=== PATIENT | male | born 1990 | race African-American/Black ===

== ENCOUNTER 2016-11-16 07:53 | Emergency (ER) | payer SELFPAY ==
[2016-11-16 08:05] VITALS: BP 121/58
--- NOTE | 2016-11-16 08:53 | ER Document Report ---
ED Oral Problem - General Chief Complaint: Toothache Stated Complaint: TOOTH PAIN Mode of Arrival: Ambulatory Information source: Patient Notes: 26-year-old male presents to the emergency department complaining of left upper dental pain over the last 2 days. States has decayed tooth that has intermittently caused him pain in the past but has worsened over the last 2 days. States has had previous dental abscess and does not want to get to that point again. Denies fever, drainage, difficulty breathing or swallowing. TRAVEL OUTSIDE OF THE [place] IN LAST 30 DAYS: No - HPI Patient complains to provider of: Toothache Onset: Gradual Quality of pain: Achy Severity: Moderate Pain Level: 4 Associated symptoms: Dental decay, Toothache. denies: Difficulty speaking, Drooling, Fever, Jaw pain, Unable to swallow Similar symptoms previously: Yes Recently seen / treated by doctor/dentist: No - Related Data Allergies/Adverse Reactions: Penicillins Allergy (Verified 11/16/16 08:06) Past Medical History - General Information source: Patient - Social History Smoking Status: Current Some Day Smoker Frequency of alcohol use: Occasional Drug Abuse: None Lives with: Family Family History: Reviewed & Not Pertinent - Medical History Medical History: Negative Surgical Hx: Negative - Immunizations Hx Diphtheria, Pertussis, Tetanus Vaccination: Yes Review of Systems - Review of Systems Constitutional: No symptoms reported EENT: See HPI Cardiovascular: No symptoms reported Respiratory: No symptoms reported Gastrointestinal: No symptoms reported Genitourinary: No symptoms reported Male Genitourinary: No symptoms reported Musculoskeletal: No symptoms reported Skin: No symptoms reported Hematologic/Lymphatic: No symptoms reported Neurological/Psychological: No symptoms reported -: Yes All other systems reviewed and negative Physical Exam - Vital signs Vitals: Temp Pulse Resp BP Pulse Ox 97.8 F 56 L 16 121/58 L 100 11/16/16 08:04 11/16/16 08:04 11/16/16 08:04 11/16/16 08:04 11/16/16 08:04 Interpretation: Normal - General General appearance: Appears well, Alert - HEENT Head: Normocephalic, Atraumatic Eyes: Normal Conjunctiva: Normal Eyelashes: Normal Pupils: PERRL Ears: Normal External canal: Normal Tympanic membrane: Normal Sinus: Normal Nasal: Normal Mouth/Lips: Caries. No: Angioedema, Dental fracture, Laceration Mucous membranes: Normal, Moist Teeth diagram: 1 - Moderate dental decay, localized tenderness with palpation. No swelling, drainage, or fluctuance. Pharynx: Normal. No: Blood in hypopharynx, Erythema, Exudate, Peritonsillar abscess, Post nasal drainage, Retropharyngeal abscess, Tonsillar hypertrophy, Uvular edema, Potential airway comprom., Other Neck: Normal. No: Anterior cervical chain, Posterior cervical chain, Lymphadenopathy, Meningismus, Subcutaneous emphysema - Respiratory Respiratory status: No respiratory distress Chest status: Nontender Breath sounds: Normal. No: Rhonchi, Wheezing Chest palpation: Normal - Cardiovascular Rhythm: Regular Heart sounds: Normal auscultation Murmur: No Pulses: Normal: Radial Normal capillary refill: Yes - Back Back: Normal, Nontender - Extremities General upper extremity: Normal inspection, Normal color, Normal ROM General lower extremity: Normal inspection, Normal color, Normal ROM, Normal weight bearing - Neurological Neuro grossly intact: Yes Cognition: Normal Orientation: AAOx4 [place] Coma Scale Eye Opening: Spontaneous [place] Coma Scale Verbal: Oriented [place] Coma Scale Motor: Obeys Commands Agnes Coma Scale Total: 15 Speech: Normal Motor strength normal: LUE, RUE, LLE, RLE Sensory: Normal - Psychological Associated symptoms: Normal affect, Normal mood - Skin Skin Temperature: Warm Skin Moisture: Dry Skin Color: Normal Course - Re-evaluation Re-evalutation: 11/16/16 08:51 Patient hemodynamically stable, in no distress, afebrile. No trismus, abscess, suggestion of Angel's angina or significant deep space or soft tissue infection at this time. Home care, follow-up with dental provider, ED return precautions discussed with patient who verbalized understanding and agrees with plan. - Vital Signs Vital signs: Temp Pulse Resp BP Pulse Ox 97.8 F 56 L 16 121/58 L 100 11/16/16 08:04 11/16/16 08:04 11/16/16 08:04 11/16/16 08:04 11/16/16 08:04 Discharge - Discharge Clinical Impression: Pain, dental Condition: Stable Disposition: HOME, SELF-CARE Additional Instructions: TOOTHACHE: Your pain is due to dental decay. The tooth must be repaired in order for you to feel better. You will, therefore, be referred to a dentist. We do not have dentists on the staff at [facility]. Severe swelling or drainage around a tooth usually means a dental abscess. This also requires evaluation and treatment by the dentist, but antibiotics may be prescribed while awaiting dental treatment. You should be rechecked immediately if you develop major swelling of the face, increasing pain, a lump in the jaw or gums, headache, difficulty swallowing, or fever. Anti-Inflammatory Medication You have received a prescription for an antiinflammatory agent. This is an excellent, safe drug for pain control. In addition, it has potent antiinflammatory effects which are beneficial, especially in the treatment of injuries, arthritis, or tendonitis. It's best to take this medicine with food. Persons with ulcer disease or allergy to aspirin should notify their physician of this before taking this drug. Take the medication exactly as prescribed. Don't take additional doses unless instructed to do so by your doctor. If you develop wheezing, shortness of breath, hives, faintness, stomach pain, vomiting, or dark black stools, return for re-evaluation at once. CLINDAMYCIN: You have been given a prescription for the antibiotic clindamycin. It is often prescribed for infections in the mouth, such as dental infections or abscesses, and for skin infections due to MRSA. It's important that you take all the medication, unless instructed otherwise by your physician. Failure to complete the entire course can result in relapse of your condition. Common side effects of antibiotics include nausea, intestinal cramping, or diarrhea. Women may develop vaginal yeast infections, and babies can get yeast (thrush) in the mouth following the use of antibiotics. Contact your physician if you develop significant side effects from this medication. Allergy to this antibiotic can result in hives, wheezing, faintness, or itching. If symptoms of allergy occur, stop the medication and call the doctor. FOLLOW-UP CARE: Follow-up with your dental provider tomorrow as discussed. If you're unable to follow-up with your own dental provider you may contact any of the clinics listed below and schedule an appointment within the next week. If you experience worsening or a significant change in your symptoms, notify the physician immediately or return to the Emergency Department at any time for re-evaluation. [facility] [address] [place], [place] mornings, by appointment [facility] [address] [place] [address] [facility] [address] [facility] [address] [facility] [address] [email or web address] [address] [place] [address] Wednesday- 8:00am to 5:00 pm Will see patients from other [facility]. Charges based on income and family size and accepts Medicare, Medicaid, and Insurances Will pull molars [facility] [address] Hours of Operation 8:00 am - 4:30 pm weekdays The following dental offices accept Medicaid: [facility] Dr. Narayan Dr. Preston Dr. Devi Dr. Moore Prasanna Tompkins Lutsavage, and Ghanshyam oral surgery Dr. Guillen ([place]) Dr. Espinal ([place]) [facility] Drs. Clark and Sammy ([place]) Dr. Caban ([place]) [facility] Dr. Bray ([place]) Drs. Maki and Scholar ([place]) Medicaid Care Line Prescriptions: Clindamycin HCl 300 mg PO Q6H #20 capsule Naproxen [Naprosyn 375 Mg Tablet] 375 mg PO BIDP PRN #10 tablet PRN Reason:
== END 2016-11-16 09:03 | disposition home or self-care (01) ==
LOC: ER 07:53
DX: K08.9 Disorder of teeth and supporting structures, unspecified (principal); F17.200 Nicotine dependence, unspecified, uncomplicated; Z88.0 Allergy status to penicillin
CPT/HCPCS: 99282

== ENCOUNTER 2017-02-16 08:07 | Emergency (ER) | payer SELFPAY ==
--- NOTE | 2017-02-16 09:07 | ER Document Report ---
ED Oral Problem - General Chief Complaint: Toothache Stated Complaint: TOOTH PAIN Mode of Arrival: Ambulatory Information source: Patient TRAVEL OUTSIDE OF THE [place] IN LAST 30 DAYS: No - HPI Patient complains to provider of: Toothache Onset: Last week Onset: Gradual Quality of pain: Achy Severity: Moderate Associated symptoms: Dental decay, Toothache. denies: Chills, Cough, Decreased appetite, Difficulty speaking, Drainage, Drooling, Earache, Facial pain, Fever, Headache, Short of breath, Sweaty, Tongue swelling, Unable to swallow, White patches in mouth Worsened by: Cold Notes: Patient arrives with complaints of right upper dental pain for the last few days. No injury. No swelling. No difficulty breathing or swallowing. No nausea, vomiting, diarrhea. No chest pain or shortness of breath. He's had this in the past and has been seen for dental pain several times in the emergency department. He reports that he does have a dentist that he can follow -up with. He denies any other complaints at this time. - Related Data Allergies/Adverse Reactions: Penicillins Allergy (Verified 02/16/17 08:11) Past Medical History - Social History Smoking Status: Current Some Day Smoker Chew tobacco use (# tins/day): No Frequency of alcohol use: Occasional Drug Abuse: None Family History: Reviewed & Not Pertinent Patient has suicidal ideation: No Patient has homicidal ideation: No Renal/ Medical History: Denies: Hx Peritoneal Dialysis - Immunizations Hx Diphtheria, Pertussis, Tetanus Vaccination: Yes Review of Systems - Review of Systems -: Yes All other systems reviewed and negative Physical Exam - Vital signs Vitals: Temp Pulse Resp BP Pulse Ox 98.2 F 59 L 16 140/65 H 100 02/16/17 08:12 02/16/17 08:12 02/16/17 08:12 02/16/17 08:12 02/16/17 08:12 - General General appearance: Appears well, Alert - HEENT Eyes: Normal Conjunctiva: Normal Ears: Normal External canal: Normal Tympanic membrane: Normal Mouth/Lips: Normal, Other - Widespread dental decay. The patient has tenderness over his right upper second molar. This tooth is decayed. I do not appreciate any drainable abscess at this time. There is no trismus or drooling. Mucous membranes: Normal Pharynx: Normal Neck: Normal - Respiratory Respiratory status: No respiratory distress Breath sounds: Normal - Cardiovascular Rhythm: Regular Heart sounds: Normal auscultation Murmur: No - Extremities General upper extremity: Normal inspection, Nontender, Normal color, Normal ROM , Normal temperature General lower extremity: Normal inspection, Nontender, Normal color, Normal ROM , Normal temperature, Normal weight bearing. No: Quita's sign - Neurological Neuro grossly intact: Yes Cognition: Normal Orientation: AAOx4 [place] Coma Scale Eye Opening: Spontaneous [place] Coma Scale Verbal: Oriented [place] Coma Scale Motor: Obeys Commands Agnes Coma Scale Total: 15 Speech: Normal Motor strength normal: LUE, RUE, LLE, RLE Sensory: Normal - Psychological Associated symptoms: Normal affect, Normal mood - Skin Skin Temperature: Warm Skin Moisture: Dry Skin Color: Normal Course - Re-evaluation Re-evalutation: 02/16/17 09:05 The patient is nontoxic appearing with stable vitals. The patient has a dental carry to the right upper second molar. Did not appreciate any abscess at this time. No swelling. He is in no distress. There is no trismus or drooling. The patient is allergic to penicillin, therefore the patient will be discharged home with clindamycin as well as NSAIDs. He will be instructed to follow-up with his dentist at the next available appointment. Follow-up sooner for increased pain, fever, swelling, difficulty breathing or swallowing, persistent vomiting, or any further concerns. The patient is noted to have elevated blood pressure during today's emergency department visit. The patient was informed of this finding. The patient was instructed that this may be related to pre-hypertension and requires further evaluation with a primary care provider. The patient has no hypertensive symptoms at this time. The patient's emergency department workup and current diagnosis were explained to the patient and or family. Follow-up instructions were provided. Medications if prescribed were discussed. Instructions for when to return to the emergency department including specific worrisome symptoms were discussed with the patient and/or family. - Vital Signs Vital signs: Temp Pulse Resp BP Pulse Ox 98.2 F 59 L 16 140/65 H 100 02/16/17 08:12 02/16/17 08:12 02/16/17 08:12 02/16/17 08:12 02/16/17 08:12 Discharge - Discharge Clinical Impression: Dental cavities Condition: Stable Disposition: HOME, SELF-CARE Instructions: Toothache (OM) Additional Instructions: Take medications as prescribed. Drink plenty of fluids. Follow-up with your dentist at the next available appointment. Follow-up sooner for increased pain , fever, significant swelling, difficulty breathing, difficulty swallowing, persistent vomiting, or any further concerns. Your blood pressure was elevated during today's visit. Have this rechecked with your doctor. Prescriptions: Clindamycin HCl 300 mg PO QID #40 capsule Diclofenac Sodium [Voltaren] 75 mg PO BID #20 tablet.dr Forms: Elevated Blood Pressure
[2017-02-16 09:39] VITALS: BP 138/60
== END 2017-02-16 09:30 | disposition home or self-care (01) ==
LOC: ER 08:07
DX: K02.9 Dental caries, unspecified (principal); K08.89 Other specified disorders of teeth and supporting structures; R05 Cough; R63.0 Anorexia
CPT/HCPCS: 99282

== ENCOUNTER 2017-03-23 08:02 | Emergency (ER) | payer SELFPAY ==
[2017-03-23 08:12] VITALS: BP 126/83
[2017-03-23] MEDS ORDERED: LIDOCAINE 1% INJ-PF (10 MG/ML) 30 ML SDV INJ ONE (08:35)
--- NOTE | 2017-03-23 09:35 | ER Document Report ---
ED General - General Chief Complaint: Abscess Stated Complaint: ABSCESS Time Seen by Provider: 03/23/17 08:29 Mode of Arrival: Ambulatory Information source: Patient Notes: 26-year-old male presents with complaints of abscess under the right armpit 34 day duration. Patient denies any fevers or chills nausea vomiting or diarrhea TRAVEL OUTSIDE OF THE [place] IN LAST 30 DAYS: No - HPI Onset: Other Onset/Duration: Persistent Quality of pain: Achy Severity: Mild Pain Level: 1 Associated symptoms: Other Exacerbated by: Denies Relieved by: Denies Similar symptoms previously: Yes Recently seen / treated by doctor: No - Related Data Allergies/Adverse Reactions: Penicillins Allergy (Verified 02/16/17 08:11) Past Medical History - Social History Smoking Status: Never Smoker Cigarette use (# per day): No Chew tobacco use (# tins/day): No Smoking Education Provided: No Family History: Reviewed & Not Pertinent Patient has suicidal ideation: No Patient has homicidal ideation: No Renal/ Medical History: Denies: Hx Peritoneal Dialysis - Immunizations Hx Diphtheria, Pertussis, Tetanus Vaccination: Yes Review of Systems - Review of Systems Notes: REVIEW OF SYSTEMS: CONSTITUTIONAL : Denies fever, chills, or sweats. Denies recent illness. EENT: Denies eye, ear, throat, or mouth pain or symptoms. Denies nasal or sinus congestion or discharge. Denies throat, tongue, or mouth swelling or difficulty swallowing. CARDIOVASCULAR: Denies chest pain. Denies palpitations or racing or irregular heart beat. Denies ankle edema. RESPIRATORY: Denies cough, cold, or chest congestion. Denies shortness of breath, difficulty breathing, or wheezing. GASTROINTESTINAL: Denies abdominal pain or distention. Denies nausea, vomiting , or diarrhea. Denies blood in vomitus, stools, or per rectum. Denies black, tarry stools. Denies constipation. GENITOURINARY: Denies difficulty urinating, painful urination, burning, frequency, blood in urine, or discharge. MUSCULOSKELETAL: Denies back or neck pain or stiffness. Denies joint pain or swelling. SKIN: right axillay abscess HEMATOLOGIC : Denies easy bruising or bleeding. LYMPHATIC: Denies swollen, enlarged glands. NEUROLOGICAL: Denies confusion or altered mental status. Denies passing out or loss of consciousness. Denies dizziness or lightheadedness. Denies headache. Denies weakness or paralysis or loss of use of either side. Denies problems with gait or speech. Denies sensory loss, numbness, or tingling. Denies seizures. PSYCHIATRIC: Denies anxiety or stress. Denies depression, suicidal ideation, or homicidal ideation. ALL OTHER SYSTEMS REVIEWED AND NEGATIVE. Dictation was performed using [employer] voice recognition software PHYSICAL EXAMINATION: GENERAL: Well-appearing, well-nourished and in no acute distress. HEAD: Atraumatic, normocephalic. EYES: Pupils equal round and reactive to light, extraocular movements intact, sclera anicteric, conjunctiva are normal. ENT: Nares patent, oropharynx clear without exudates. Moist mucous membranes. NECK: Normal range of motion, supple without lymphadenopathy LUNGS: Breath sounds clear to auscultation bilaterally and equal. No wheezes rales or rhonchi. HEART: Regular rate and rhythm without murmurs ABDOMEN: Soft, nontender, nondistended abdomen. No guarding, no rebound. No masses appreciated. Musculoskeletal: Normal range of motion, no pitting or edema. No cyanosis. NEUROLOGICAL: Cranial nerves grossly intact. Normal speech, normal gait. Normal sensory, motor exams PSYCH: Normal mood, normal affect. SKIN:right axillary abscess 5x5 cm fluctuant Physical Exam - Vital signs Vitals: Temp Pulse Resp BP Pulse Ox 97.6 F 78 20 126/83 H 100 03/23/17 08:09 03/23/17 08:09 03/23/17 08:09 03/23/17 08:09 03/23/17 08:09 Course - Re-evaluation Re-evalutation: 03/23/17 10:03 Area was anesthetized incised large amount of pus was drained patient was started on antibiotics and given surgical follow-up Patient instructed on risks and benefits of medications prescribed. Denies any concerns regarding such. After performing a Medical Screening Examination, I estimate there is LOW risk for OPEN FRACTURE, COMPARTMENT SYNDROME, TENDON RUPTURE, ACUTE NEUROVASCULAR INJURY, or RETAINED FOREIGN BODY, thus I consider the discharge disposition reasonable. Also, there is no evidence or peritonitis, sepsis, or toxicity. I have reevaluated this patient multiple times and no significant life threatening changes are noted. The patient and I have discussed the diagnosis and risks, and we agree with discharging home with close follow-up with the understanding that symptoms and presentations can change. We also discussed returning to the Emergency Department immediately if new or worsening symptoms occur. We have discussed the symptoms which are most concerning (e.g., changing or worsening pain, fever, numbness, weakness, cool or painful digits) that necessitate immediate return. 03/23/17 10:03 - Vital Signs Vital signs: Temp Pulse Resp BP Pulse Ox 97.6 F 78 20 126/83 H 100 03/23/17 08:09 03/23/17 08:09 03/23/17 08:09 03/23/17 08:09 03/23/17 08:09 Procedures - Incision and Drainage Right Arm Time completed: 09:34 Type: Simple, Single Anesthetic type: 1% Lidocaine mL's of anesthetic: 10 Blade size: 11 I&D procedure: Sterile dressing applied Incision Method: Incision made by scalpel Amount/type of drainage: large thick pus Discharge - Discharge Clinical Impression: Axillary abscess Condition: Stable Disposition: HOME, SELF-CARE Instructions: Post Incision and Drainage Prescriptions: Sulfamethoxazole/Trimethoprim [Bactrim Ds Tablet] 2 each PO BID #40 tablet Referrals: RAJ ELAM MD [ACTIVE STAFF] - Follow up in 3-5 days
== END 2017-03-23 10:15 | disposition home or self-care (01) ==
LOC: ER 08:02
PROC: 0H9BXZZ Drainage of Right Upper Arm Skin, External Approach (ICD-10-PCS; principal; 2017-03-23)
DX: L02.411 Cutaneous abscess of right axilla (principal); Z88.0 Allergy status to penicillin
CPT/HCPCS: 99283

== ENCOUNTER 2018-05-31 11:55 | Emergency (ER) | payer SELFPAY ==
[2018-05-31 12:01] VITALS: BP 122/88
[2018-05-31] MEDS ORDERED: LIDOCAINE 1% INJ-PF (10 MG/ML) 30 ML SDV INJ ONE (13:52)
[2018-05-31] MEDS ORDERED: CEFTRIAXONE INJ 1000 MG VIAL IM ONE (13:52)
[2018-05-31] MEDS ORDERED: HYDROCODONE/ACETAMINOPHEN 5-325 MG (6 TAB/ER DISP) PO PRN (13:53)
--- NOTE | 2018-05-31 13:59 | ER Document Report ---
ED General - General Chief Complaint: Rectal Abscess Stated Complaint: POSSIBLE ABSCESS Mode of Arrival: Ambulatory Information source: Patient TRAVEL OUTSIDE OF THE [place] IN LAST 30 DAYS: No - HPI Notes: 27-year-old male presents to the ED with concerns of a possible rectal abscess that he noticed approximately 1 day ago. Last bowel movement was last night. Denies any trauma to the rectum. Has had a history of this in the past approximately 10 years ago, went away on its own. Unsure of a history of MRSA. Cannot take penicillins due to what he was told was a prophylactic reaction. Pain is 7 out of 10, throbbing and sharp. Has not tried any [id number] medications. Has not tried any heat or warm soaks. Denies fevers, chills, chest pain,palpitations, shortness of breath, dyspnea, nausea, vomiting, diarrhea, abdominal pain, hematuria,blurred vision, double vision, loss of vision, speech changes, LH, dizziness, syncope, headaches, wheezing, ST, URI, neck pain, weakness, bowel or bladder dysfunction, saddle anesthesia, numbness or tingling in bilateral upper or lower extremities equally, muscle paralysis, weakness in bilateral upper or lower extremities equally or rash. Denies IV drug use. - Related Data Allergies/Adverse Reactions: Penicillins Allergy (Verified 02/16/17 08:11) Past Medical History - General Information source: Patient - Social History Smoking Status: Current Every Day Smoker Chew tobacco use (# tins/day): No Frequency of alcohol use: None Family History: Reviewed & Not Pertinent Patient has suicidal ideation: No Patient has homicidal ideation: No Renal/ Medical History: Denies: Hx Peritoneal Dialysis - Immunizations Hx Diphtheria, Pertussis, Tetanus Vaccination: Yes Review of Systems - Review of Systems Constitutional: No symptoms reported EENT: No symptoms reported Cardiovascular: No symptoms reported Respiratory: No symptoms reported Gastrointestinal: No symptoms reported Genitourinary: No symptoms reported Male Genitourinary: No symptoms reported Musculoskeletal: No symptoms reported Skin: See HPI Hematologic/Lymphatic: No symptoms reported Neurological/Psychological: No symptoms reported Physical Exam - Vital signs Vitals: Temp Pulse Resp BP Pulse Ox 98.1 F 91 16 122/88 H 100 05/31/18 12:00 05/31/18 12:00 05/31/18 12:00 05/31/18 12:00 05/31/18 12:00 - Notes Notes: PHYSICAL EXAMINATION: GENERAL: Well-appearing, well-nourished and in no acute distress. HEAD: Atraumatic, normocephalic. EYES: Pupils equal round and reactive to light, extraocular movements intact, sclera anicteric, conjunctiva are normal. ENT: Nares patent, oropharynx clear without exudates. Moist mucous membranes. NECK: Normal range of motion, supple without lymphadenopathy LUNGS: Breath sounds clear to auscultation bilaterally and equal. No wheezes rales or rhonchi. HEART: Regular rate and rhythm without murmurs : See skin exam. Normal sphincter tone, no hemorrhoids or masses palpable ABDOMEN: Soft, nontender, nondistended abdomen. No guarding, no rebound. No masses appreciated. Musculoskeletal: Normal range of motion, no pitting or edema. No cyanosis. NEUROLOGICAL: Cranial nerves grossly intact. Normal speech, normal gait. Normal sensory, motor exams PSYCH: Normal mood, normal affect. SKIN: Warm, Dry, normal turgor, no rashes or lesions noted. Noted cellulitis around rectum at 6:00, with induration, erythema to touch, no fluctuance noted. No surrounding erythema Course - Re-evaluation Re-evalutation: Healthy 27-year-old male who is afebrile, vitals stable and in no distress presents to the ED for evaluation of what he suspects is a cellulitis of his rectum, has had this before. He said he cleared up on his own. Patient states his pain only worsens when he is trying to have a bowel movement. Is passing flatus. Has not tried any warm soaks any other modalities. Discussed with him following up with the colorectal surgeon at this does turn into an abscess or to return to the ED. we will give patient stool softeners, take antibiotics as directed, warm compress, she given 6 [place] 5 mg325's to go home, advised him not to drive, drink alcohol or operate machinery while taking medication as it can cause sedation and impair driving. Follow-up with primary care provider in 1-2 days. After performing a Medical Screening Examination, I estimate there is LOW risk for EXPANDING OR RUPTURED ABDOMINAL AORTIC ANEURYSM, CAUDA EQUINA SYNDROME, EPIDURAL MASS ABSCESS OR LESION(S), OSTEOMYELITIS,PERSONAL HISTORY OF CANCER, IMMUNOSUPPERSSSION, HISTORY OF IV DRUG USE, FRACTURE, CORD COMPERSSION, CANCER, RETROPERITONEAL BLEED, SPINAL EPIDURAL HEMATOMA, or HERNIATED DISK CAUSING SEVERE SPINAL STENOSIS, thus I consider the discharge disposition reasonable. I have reevaluated this patient multiple times and no significant life threatening changes are noted. The patient and I have discussed the diagnosis and risks, and we agree with discharging home and close follow-up. We also discussed returning to the Emergency Department immediately if new or worsening symptoms occur with the understanding that symptoms and presentations can change. We have discussed the symptoms which are most concerning (e.g., saddle anesthesia, urinary or bowel incontinence or retention, changing or worsening pain) that necessitate immediate return. - Vital Signs Vital signs: Temp Pulse Resp BP Pulse Ox 98.1 F 91 16 122/88 H 100 05/31/18 12:00 05/31/18 12:00 05/31/18 12:00 05/31/18 12:05/31/18 12:00 Discharge - Discharge Clinical Impression: Abscess, Cellulitis and abscess of buttock Condition: Stable Disposition: HOME, SELF-CARE Instructions: Abscess ([facility]), Cephalexin ([facility]), MRSA Cellulitis ([facility]), Oral Narcotic Medication ([facility]), Trimethoprim-Sulfa ([facility]) Additional Instructions: Follow up with surgeon or colorectal surgeon within 3-5 days. You need to take the antibiotics as prescribed. Warm soaks, sitz bath, advised to take stool softeners to help with passage of stool. You should also return if you develop fevers with temperature greater than 101, persistent vomiting, worsening pain, or have any other symptoms that are concerning to you. Prescriptions: Clindamycin HCl 300 mg PO Q6H #28 capsule Docusate Sodium [Colace] 100 mg PO BID #60 capsule Forms: Return to Work Referrals: AMBER CLEMENTS MD [[facility]] - Follow up in 3-5 days KENDRA DUNLAP MD [ACTIVE STAFF] - Follow up in 3-5 days BERNADINE GARCIA MD [ACTIVE STAFF] - Follow up as needed
== END 2018-05-31 14:12 | disposition home or self-care (01) ==
LOC: ER 11:55
DX: L03.317 Cellulitis of buttock (principal); F17.200 Nicotine dependence, unspecified, uncomplicated; Z88.0 Allergy status to penicillin
CPT/HCPCS: 99283